=== PATIENT | female | born 2005 | race Caucasian/White ===

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

== ENCOUNTER → 2024-02-15 | Outpatient (CLI) | payer OTHER | LOC: RAD 10:57 | DX: M79.642 Pain in left hand (principal) ==

== ENCOUNTER → 2024-07-18 | Outpatient (CLI) | payer OTHER ==
[2024-07-18 10:41] LABS: BASO # 0.03 K/mm3 (0.02-0.10); EOS # 0.15 K/mm3 (0.04-0.40); EOS % 1.8 % (0.1-4.0); HEMATOCRIT 45.1 % (35.0-45.0); HEMOGLOBIN 14.9 g/dL (12.0-15.0); LYMPH# 1.73 K/mm3 (1.20-3.40); MEAN CELL VOLUME 88 fl (78-95); MEAN CORPUSCULAR HEMOGLOBIN 29 pg (26-32); MEAN CORPUSCULAR HGB CONC 33 g/dL (33-37); MEAN PLATELET VOLUME 10.1 fl (7.4-10.4); MONO # 0.53 K/mm3 (0.10-0.60); PLATELET COUNT 298 K/mm3 (130-400); RED CELL DISTRIBUTION WIDTH 12.5 % (11.5-14.5); WHITE BLOOD COUNT 8.3 K/mm3 (4.8-10.8)
[2024-07-18 10:50] LABS: TOTAL PROTEIN 8.4 g/dL (6.4-8.3)
[2024-07-18 10:52] LABS: TOTAL BILIRUBIN 0.7 mg/dL (0.2-1.2)
[2024-07-18 11:24] LABS: PARTIAL THROMBOPLASTIN TIME 22.7 SECONDS (21.0-32.0); PROTHROMBIN TIME 9.5 SECONDS (9.0-12.0)
[2024-07-19 10:48] LABS: ANA SCREEN with REFLEX Negative (Negative)
[2024-07-22 21:07] LABS: ANTI-CYC CITRULLINATED PEPT AB 4 units (0-19)
== END ==
LOC: LAB 10:09
PROVIDERS: Internal Medicine
DX: Z00.00 Encounter for general adult medical examination without abnormal findings (principal); R23.3 Spontaneous ecchymoses; K90.9 Intestinal malabsorption, unspecified; E78.2 Mixed hyperlipidemia; M25.50 Pain in unspecified joint; Z84.81 Family history of carrier of genetic disease